=== PATIENT | female | born 1990 | race Two or more races ===

== ENCOUNTER 2016-04-24 23:59 | Emergency (ER) | payer OTHER ==
[~2016-04-24 23:59] MED LIST: BACTRIM DS TABL1 TA1 PO; ERYTHROMYCIN O3.5 G1 OU; IBUPROFEN800 MG PO
== END 2016-04-25 01:10 | disposition home or self-care (01) ==
LOC: CED 23:59
DX: T37.0X5A Adverse effect of sulfonamides, initial encounter (principal); F41.9 Anxiety disorder, unspecified; Z88.8 Allergy status to other drugs, medicaments and biological substances
CPT/HCPCS: 99282

== ENCOUNTER 2016-10-31 08:58 | Emergency (ER) | payer OTHER ==
[~2016-10-31] VITALS: Ht 157.5 cm; Wt 122.5 kg
--- NOTE | ~2016-10-31 | CR63 ---
[facility] A Service of [facility] & [facility] RADIOLOGY TEXT RESULTS PATIENT: MARINA GRANADOS LOCATION: CFTX : 86 UNIT #: [id number] AGE: [address]: Karo Denson SEX: F ORDER DR: [id number] [facility] [address] [place], [place] [address] [id number] E MR#: [id number] Acc #: [id number] NAME: MARINA GRANADOS : 1990 SEX: F STUDY DATE/TIME: 10/31/2016 09:38 UNIT: [facility] ROOM: STUDY DESCRIPTION: CR Chest 2 View Attending Physician: Karo Denson P.A.-C. Ordering Physician: Karo Denson P.A.-C. Primary Care Physician: Tonya Rod M.D. MEDICAL IMAGING REPORT This report is preliminary unless electronic signature is present EXAM Chest, 2 views, 10/31/2016, 0938 hours. COMMENT HISTORY 26-year-old with 5-day history of productive cough with sore throat. COMPARISON 06/20/2015 FINDINGS Upright PA and lateral views of the chest demonstrate a large body habitus which limits detail. The cardiac, mediastinal and hilar contours within normal limits. The lungs are clear and there is no effusion. IMPRESSION Large body habitus. No acute cardiopulmonary findings. Dictated by... Chetna Benjamin M.D. THIS IS AN ELECTRONICALLY VERIFIED REPORT Chetna Benjamin M.D. at 11/01/2016 9:15 AM [facility]/elida TD: 10/31/2016 15:13 JOB #: [id number] MEDICAL IMAGING REPORT Page 1 of 1 COPY
== END 2016-10-31 10:23 | disposition home or self-care (01) ==
LOC: CFTX 08:58 → CED 08:58 → CFTX 09:55
DX: J06.9 Acute upper respiratory infection, unspecified (principal); R03.0 Elevated blood-pressure reading, without diagnosis of hypertension; F41.9 Anxiety disorder, unspecified; J45.909 Unspecified asthma, uncomplicated; Z88.1 Allergy status to other antibiotic agents; Z88.8 Allergy status to other drugs, medicaments and biological substances
CPT/HCPCS: 71020; 84703; 99283